=== PATIENT | female | born 1995 | race Caucasian/White ===

== ENCOUNTER 2019-08-12 10:18 | Day surgery (SDC) | payer MEDICAID, SELFPAY ==
[2019-08-12 10:48] VITALS: BP 125/63; TEMP 98.4; BMI 40.8
[2019-08-12] MEDS ORDERED: Ondansetron PF 4 MG/2 ML Vial IVP PRN (10:50)
[2019-08-12] MEDS ORDERED: hydrALAZINE 20 MG/ML VIAL SLOW IVP PRN (10:50)
[2019-08-12] MEDS ORDERED: Acetaminophen 500 MG TAB PO PRN (10:50)
[2019-08-12] MEDS ORDERED: Promethazine HCl 25 MG/ML VIAL IM PRN (10:50)
[2019-08-12] MEDS ORDERED: Docusate 100 MG CAP PO PRN (10:50)
[2019-08-12 11:32] LABS: #Eosinphils 0.2 thou/uL (0.0-0.7); #Lymphocytes 2.5 thou/uL (1.20-3.40); #Monocytes 0.8 thou/uL (0.11-0.59); #Neutrophils 8.2 thou/uL (1.40-6.50); %Basophils 0.1 % (0.0-1.0); %Eosinophils 1.6 % (0.0-10.0); %Lymphocytes 21.4 % (21.0-51.0); %Monocytes 6.6 % (0.0-10.0); %Neutrophils 70.3 % (42.0-75.0); Hemoglobin 10.2 g/dL (12.0-16.0); Mean Corpuscular HGB CONC 34.8 g/dL (32.0-36.0); Mean Corpuscular Hemoglobin 29.1 pg (27.0-31.0); Mean Corpuscular Volume 83.6 fL (78.0-98.0); Mean Platelet Volume 7.7 fL (7.4-10.4); Platelet Count 232 thou/uL (130-400); RBC Distribution Width 12.5 % (11.5-14.5); White Blood Cell (WBC) Count 11.7 thou/uL (4.8-10.8)
[2019-08-12 11:43] LABS: Amphetamine Not Detected (NotDetected); Cocaine Metabolite Screen Not Detected (NotDetected); Medtox Reader # READER 4; Methamphetamine Not Detected (NotDetected); Opiate Screen Not Detected (NotDetected); Phencyclidine (PCP) Not Detected (NotDetected); THC/Cannabinoid Screen Detected (NotDetected)
[2019-08-12 11:44] LABS: Barbiturates Screen Not Detected (NotDetected); Benzodiazepine Screen Not Detected (NotDetected); Medtox Control Line Valid? VALID (VALID); Methadone Not Detected (NotDetected); Oxycodone Screen Not Detected (NotDetected); Tricyclic Screen Not Detected (NotDetected)
[2019-08-12 11:51] LABS: Creatinine, Urine 154.47 mg/dL (47-110)
[2019-08-12 11:57] LABS: ALT (SGPT) 12 U/L (8-55); AST (SGOT) 12 U/L (5-34); Albumin 3.2 g/dL (3.5-5.0); Alkaline Phosphatase 119 U/L (40-150); Anion Gap 11 mmol/L (10-20); BUN (Urea Nitrogen) 5 mg/dL (7.0-18.7); Bilirubin, Total 0.2 mg/dL (0.2-1.2); Calc. Creatinine Clearance 248 mL/min (70-130); Calcium 8.5 mg/dL (7.8-10.44); Carbon Dioxide 17 mmol/L (22-29); Chloride 110 mmol/L (98-107); Estimated GFR-MDRD Greater than 90; Glucose 91 mg/dL (70-105); Potassium 3.3 mmol/L (3.5-5.1); Protein, Total 6.2 g/dL (6.0-8.3); Sodium 135 mmol/L (136-145)
--- NOTE | 2019-08-12 12:46 | PDOC.FPROB ---
FMR OB H&P: HPI - History of Present Illness Chief Complaint: Elevated Blood Pressure History of Present Illness: Patient is a 23 yo female who presents to L&D directly after a PNC visit earlier this morning. Patient states that her BP at clinic was 165/88, does not check pressures at home. She has a history of Pre-eclampsia with her first . She is late to care, with first PNC visit at 29.5 wks EGA. She did have an U/S at approx. 7.5 weeks performed at [facility] ( report not yet available). Patient currently denies any symptoms including chest pain, sob, headache, dizziness, vision or hearing changes, abdominal pain , nausea/vomiting, diarrhea, constipation, myalgia, arthralgia. Says she has felt her hands were a little bit more swollen in past week. FMR OB H&P: Current - Care : 2 Para: 1 Gestational age: 30.5 weeks Due date: 10/16/19 Dating Criteria: LMP on 01/09/19 c/w 7.5 week U/S Course/Complications: Glucose intolerance, Gest. 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 Admits to using marijuana "a few weeks ago" - Family History Family History: Grandparents: hypertension, diabetes FMR OB H&P: Medications - Current Home Medications: Medication Instructions Recorded Confirmed Type Vitamin 1 tablet PO DAILY 08/12/19 08/12/19 History Sertraline HCl 50 mg PO DAILY 08/12/19 08/12/19 History Allergies/Adverse Reactions: Allergies Allergy/AdvReac Type Severity Reaction Status Date / Time No Known Allergies Allergy Verified 08/12/19 14:24 FMR OB H&P: ROS - Review of Systems General: denies: fever/chills, weight/appetite/sleep changes, fatigue, recent trauma Eyes: denies: vision changes, double vision ENT: denies: nasal congestion, rhinorrhea Cardiovascular: denies: chest pain, palpitation Respiratory: denies: cough, congestion, shortness of breath Gastrointestinal: denies: abdominal pain, nausea, vomiting, diarrhea, constipation Genitourinary (Female): denies: vaginal discharge, vaginal bleeding Musculoskeletal: denies: pain, stiffness, tenderness, decrease range of motion Neurologic: denies: numbness, syncope, weakness, headache Integumentary: denies: itching, rash Psychological: reports: depression FMR OB H&P: Vital Signs - Maternal Vital signs: Vital Signs - First Documented Temp Pulse Resp BP Pulse Ox 98.4 F 101 H 18 125/63 96 08/12/19 10:43 08/12/19 10:43 08/12/19 10:43 08/12/19 10:43 08/12/19 10:43 - Heart Tones Baseline: 135 Variability: moderate Acceleration: present Deceleration: absent Category: category 1 [place] contractions every: none FMR OB H&P: Physical Exam - Physical Exam General: NAD, awake, alert and oriented HEENT: normocephalic and atraumatic, EOMI, MMM, conjunctiva clear, grossly normal vision, grossly normal hearing Neck: supple, FROM, no JVD Heart: RRR, normal S1/S2, no murmurs/rubs/gallops, pulses present, no edema General: CTAB, no respiratory distress, good air movement, no rales/rhonchi, no wheezing Abdomen: soft, non-tender, bowel sound present Musculoskeletal: pulses present Neurological: no focal deficit Skin: no rash, good tugor, no jaundice Lymphatic: no unusual bruising or bleeding Psychiatric: intact recent and remote memory, normal mood and affect FMR OB H&P: Results - Labs Lab results: Laboratory Results - last 24 hr 08/12/19 08/12/19 08/12/19 11:17 11:17 11:23 WBC RBC Hgb Hct MCV MCH MCHC RDW Plt Count MPV Neutrophils % Lymphocytes % Monocytes % Eosinophils % Basophils % Neutrophils # Lymphocytes # Monocytes # Eosinophils # Basophils # Sodium Potassium Chloride Carbon Dioxide Anion Gap BUN Creatinine Estimated GFR (MDRD) Glucose POC Glucose Hemoglobin A1c 5.0 Calcium Total Bilirubin AST ALT Alkaline Phosphatase Serum Total Protein Albumin Globulin Albumin/Globulin Ratio U Random Total Protein 17 H Urine Creatinine 154.47 H Urine Opiates Screen Not Detected Ur Oxycodone Screen Not Detected Urine Methadone Screen Not Detected Ur Propoxyphene Screen Not Detected Ur Barbiturates Screen Not Detected Ur Tricyclics Screen Not Detected Ur Phencyclidine Scrn Not Detected Ur Amphetamines Screen Not Detected U Methamphetamines Scrn Not Detected U Benzodiazepines Scrn Not Detected U Cocaine Metab Screen Not Detected U Cannabinoids Screen Detected H Drug Screen Comment 08/12/19 08/12/19 08/12/19 11:23 11:23 11:32 WBC 11.7 H RBC 3.50 L Hgb 10.2 L Hct 29.3 L MCV 83.6 MCH 29.1 MCHC 34.8 RDW 12.5 Plt Count 232 MPV 7.7 Neutrophils % 70.3 Lymphocytes % 21.4 Monocytes % 6.6 Eosinophils % 1.6 Basophils % 0.1 Neutrophils # 8.2 H Lymphocytes # 2.5 Monocytes # 0.8 H Eosinophils # 0.2 Basophils # 0.0 Sodium 135 L Potassium 3.3 L Chloride 110 H Carbon Dioxide 17 L Anion Gap 11 BUN 5 L Creatinine 0.54 L Estimated GFR (MDRD) Greater than 90 Glucose 91 POC Glucose 97 Hemoglobin A1c Calcium 8.5 Total Bilirubin 0.2 AST 12 ALT 12 Alkaline Phosphatase 119 Serum Total Protein 6.2 Albumin 3.2 L Globulin 3.0 Albumin/Globulin Ratio 1.1 L U Random Total Protein Urine Creatinine Urine Opiates Screen Ur Oxycodone Screen Urine Methadone Screen Ur Propoxyphene Screen Ur Barbiturates Screen Ur Tricyclics Screen Ur Phencyclidine Scrn Ur Amphetamines Screen U Methamphetamines Scrn U Benzodiazepines Scrn U Cocaine Metab Screen U Cannabinoids Screen Drug Screen Comment FMR OB H&P: A/P - Problem List (1) Third trimester Current Visit: Yes Status: Acute Code(s): Z34.93 - ENCNTR FOR SUPRVSN OF NORMAL PREG, UNSP, THIRD TRIMESTER (2) Gestational HTN Current Visit: Yes Status: Acute Code(s): O13.9 - GESTATIONAL HTN W/O SIGNIFICANT PROTEINURIA, UNSP TRIMESTER Qualifiers: Trimester: third trimester Qualified Code(s): O13.3 - Gestational [ -induced] hypertension without significant proteinuria, third trimester (3) Hx of pre-eclampsia in prior , currently Current Visit: Yes Status: Acute Code(s): O09.299 - SUPRVSN OF PREG W POOR REPRODCTV OR OBSTET HISTORY, UNSP TRI (4) Glucose intolerance Current Visit: Yes Status: Acute Code(s): E74.39 - OTHER DISORDERS OF INTESTINAL CARBOHYDRATE ABSORPTION Disposition: 23 yo female @ 30.5 weeks who presents to L&D triage with report of elevated blood pressures and failed 2h GTT at [facility] visit earlier in morning. #New Dx of Gestational HTN, r/o Pre-Eclampsia -will monitor BP, HR -will monitor FHR tracing and obtain NST -check CBC, CMP, Urine Protein, Urine Creatinine #Glucose Intolerance -failed 2hr GTT -check random BG now & order HgA1C -will provide dietary counseling #Blood type A, Rh negative -received one dose of Rhogam at clinic visit earlier today #, third trimester -late to pre- care, first visit 29.5 weeks -routine pre- labs taken at clinic visit today -has f/u appointment at [facility] on 08/19/19 Discussion: Date/Time: 08/12/19 0910 This H&P was discussed with Dr. Luis and Dr. Forbes who agree with the above documentation and plan.
--- NOTE | 2019-08-12 20:26 | PDOC.EVN ---
Event Note - Event Note Event Note: 23 yo female @ 30.5 weeks who presents to L&D triage with report of elevated blood pressures and failed 2h GTT at [facility] visit earlier in morning. Patient's blood pressures while being monitored over approx. 2 hour period were 120s systolic/ 70s diastolic. HR <100. Patient's FHR tracing was reactive and reassuring, FHR 130s with occasional accelerations. Patient's labs were grossly normal, including an HgA1C of 5.0% and Urine Protein/Cr ratio of 0.11. Patient was instructed to keep her f/u appointment at [facility] on 08/19/[address] Katerin Francis. She was also provided with dietary counseling. She was discharged back to home at approx. 1300 after about 2 hours of monitoring on L&D.
== END 2019-08-12 13:08 | disposition home health service (06) ==
LOC: L&D/OP 10:18
PROVIDERS: ATTEND Family Medicine
DX: O13.3 Gestational [pregnancy-induced] hypertension without significant proteinuria, third trimester (principal); O99.283 Endocrine, nutritional and metabolic diseases complicating pregnancy, third trimester; E74.39 Other disorders of intestinal carbohydrate absorption; O99.213 Obesity complicating pregnancy, third trimester; E66.9 Obesity, unspecified; O09.293 Supervision of pregnancy with other poor reproductive or obstetric history, third trimester; Z79.899 Other long term (current) drug therapy; Z3A.30 30 weeks gestation of pregnancy
CPT/HCPCS: 36415; 36416; 80053; 80306; 82570; 83036; 84156; 85025

== ENCOUNTER → 2019-08-29 | Day surgery (SDC) | payer MEDICAID, OTHER ==
[~2019-08-29] MED LIST: FLU VACC QS2019-20(6MOS UP)/PF 60 MCG/0.5 ML SYRINGE IM ONE; hydrALAZINE 20 MG/ML VIAL SLOW IVP PRN
[2019-08-29 07:11] VITALS: BMI 40.8
--- NOTE | 2019-08-29 08:44 | PDOC.FPROB ---
FMR OB H&P: HPI - History of Present Illness Chief Complaint: High BP Indentification: at 33.1 by LMP/7.1 wk sono History of Present Illness: 23 yo at 33.1 by LMP/7.1 wk sono here for elevated BP. She has had borderline BPs in [facility] and so has been advised to monitor at home. This AM she had a BP of 139/101 and came straight here. She was seen on 08/12 for a preE workup which was negative. Currently she denies SOLER, vision changes, CP, SOB, RUQ pain. Had a SOLER yesterday that resolved with tylenol. She denies CTX, fever, chills, VB, LOF. Endorses green VD for the past two days. Denies hx of STIs. Primary Care Physician: Dr. Manley FMR OB H&P: Current - Care : 2 Para: 1 Gestational age: 33.1 Due date: 10/16/19 Dating Criteria: - OB Labs Blood type: A RH: negative Antibody Screen: negative HIV: negative RPR: negative HepBsAg: negative Rubella: non-immune Gonorrhea: negative Chlamydia: negative Pap Smear: ASCUS A1c: 5.0 GBS: unknown H&H: 10.6/31.3 Platelets: 250 - Anatomy Survey Anatomy survey: [place] 40.5%. placenta anterior. size equal to dates, male fetus, no other abnormalities noted, limited exam due to gestational age FMR OB H&P: History - Past Medical History PMH: Depression, depression, GDM A1, obesity, late to care, GERD , ASCUS, anemia of , hx of cannabis, rubella nonimmune - OB History OB History: one at 40 weeks - ROAD MARKER History ROAD MARKER History: ASCUS, no hx of STD's - Surgical History Sx History: cholecystectomy - Social History Social History: denies TAD - Family History Family History: htn mother and maternal aunt FMR OB H&P: Medications - Current Home Medications: Medication Instructions Recorded Confirmed Type Vitamin 1 tablet PO DAILY 08/12/19 08/29/19 History Sertraline HCl 50 mg PO DAILY 08/12/19 08/29/19 History Allergies/Adverse Reactions: Allergies Allergy/AdvReac Type Severity Reaction Status Date / Time No Known Allergies Allergy Verified 08/29/19 07:06 FMR OB H&P: ROS - Review of Systems General: denies: fever/chills Eyes: denies: vision changes, scotomas Cardiovascular: reports: palpitation (hx of anxiety attacks). denies: chest pain, edema Respiratory: denies: shortness of breath Gastrointestinal: reports: diarrhea (4 days watery, 3x/day). denies: abdominal pain Genitourinary (Female): reports: vaginal discharge (green discharge 2 days). denies: contractions Musculoskeletal: denies: swelling Neurologic: denies: headache Psychological: reports: depression, anxiety FMR OB H&P: Vital Signs - Maternal Vital signs: BP systolic range 120s, max 133; diastolic range 80s, max 89 - Heart Tones Baseline: 150 Variability: moderate Acceleration: present Deceleration: absent Category: category 1 (none- reactive and reassuring) FMR OB H&P: Physical Exam - Physical Exam General: NAD Heart: RRR, normal S1/S2 General: CTAB, no respiratory distress Abdomen: soft, non-tender Musculoskeletal: normal gait and station, pulses present, FROM in all four extremities FMR OB H&P: Results - Labs Other labs: Pending FMR OB H&P: A/P - Problem List (1) Vaginal discharge Current Visit: Yes Status: Acute Code(s): N89.8 - OTHER SPECIFIED NONINFLAMMATORY DISORDERS OF VAGINA (2) Elevated blood pressure affecting in third trimester, antepartum Current Visit: Yes Status: Acute Code(s): O16.3 - UNSPECIFIED MATERNAL HYPERTENSION, THIRD TRIMESTER (3) Post depression Current Visit: No Status: Acute Code(s): F53 - MENTAL AND BEHAVRL DISORDERS ASSOC WITH THE P * DO NOT USE * (4) Third trimester Current Visit: No Status: Acute Code(s): Z34.93 - ENCNTR FOR SUPRVSN OF NORMAL PREG, UNSP, THIRD TRIMESTER Discussion: Date/Time: 08/29/19 0832 23 at 33.1 by LMP/7.1wk sono 1. sIUP 2. Elevated home BP, preE rule out -all normal BPs <140/<90, no indication for further preE lab workup -Continue home and PNC monitoring -Elevated BP at home likely 2/2 to anxiety attack -NST reactive & reassuring 3. Vaginal discharge -VP3, GCC pending-treat as indicated 4. Anxiety -continue zoloft -counseling Continue routine f/u on appt 09/[address] Manley This H&P was discussed with Dr. Gaytan who agree with the above documentation and plan.
--- NOTE | 2019-08-29 09:27 | PDOC.EVN ---
Event Note - Event Note Event Note: OBGYN ATTESTATION: Triage A Seen at [phone] Patient seen at bedside by me and FM OB Team telephonic nurse case manager. Patient is a 23 yo at 33 weeks 1 day with increased BP at home at 131/ 101...here BPs are normal. Past HX of anxiety, on Zoloft 25 mg QD. ROS also pos for greenisg Vag Dsch. NST reactive. No evidence PTL or severe PIH syndrome. We will order VP3, GCCHL swab, and likely DC to home once returned.
--- NOTE | 2019-08-29 10:48 | PDOC.EVN ---
Event Note - Event Note Event Note: Discussed results with patient- positive for BV. Will send in abx. Discussed labor precuations, BP monitoring. Continue anxiety medications. Answered all questions. Continue PNC OB visits, next one 09/09. Patient indicated understanding. FHT reactive & reassuring. BPs stable all <140/<90
[2019-08-31 14:47] LABS: Chlamydia by PCR Not Detected (NotDetected); GC by PCR Not Detected (NotDetected)
== END | disposition home or self-care (01) ==
LOC: L&D/OP 06:39
PROVIDERS: ATTEND Obstetrics & Gynecology
DX: O99.89 Other specified diseases and conditions complicating pregnancy, childbirth and the puerperium (principal); R03.0 Elevated blood-pressure reading, without diagnosis of hypertension; N89.8 Other specified noninflammatory disorders of vagina; O99.343 Other mental disorders complicating pregnancy, third trimester; F41.8 Other specified anxiety disorders; Z3A.33 33 weeks gestation of pregnancy; Z79.899 Other long term (current) drug therapy
CPT/HCPCS: 87480; 87491; 87510; 87591; 87660

== ENCOUNTER 2019-09-01 22:44 | Day surgery (SDC) | payer OTHER ==
[2019-09-01 23:11] VITALS: BMI 40.8
[2019-09-01] MEDS ORDERED: Lactated Ringer's 1,000 ML IV SCH (23:45)
[2019-09-01] MEDS ORDERED: hydrALAZINE 20 MG/ML VIAL SLOW IVP PRN (23:49)
--- NOTE | 2019-09-02 00:20 | PDOC.FPROB ---
FMR OB H&P: HPI - History of Present Illness Chief Complaint: contractions History of Present Illness: Patient is a 23yo female at 33.4 weeks EGA by 7.1 wk U/S & LMP who presents to L&D triage with complaint of abdominal pain and back pain. Patient states that last night she started to feel pain in her back that radiated around to her abdomen, occurring bilaterally. Pain described as shooting and sharp, occurs about every 20 minutes. She additionally complains of a "knot" in her upper central abdomen that has been present on/off for past 24 hours. She has tried taking hot baths and applying heat pad but these have provided no pain relief. In past 24 hours has felt less movement. States normally feels baby move every 30 minutes but now only feeling movement every 2-3 hours. Patient additionally states that she has new diarrhea that started about 1 week ago. She has been drinking about 1.5-2 liters of water daily in attempt to stay hydrated. Also states depression sx have been worsening with more frequent panic attacks. She states she has to sit still in quiet room for period of time and feeling self-resolve. Denies any suicidal or homicidal ideations. Denies nausea/vomiting, swelling, vision changes, headache, vaginal bleeding, loss of fluid. Has dx of GDM currently managed with diet. Past few weeks FBG has been in 80s, highest BS she has seen is 117. Is seen at [facility]. Recent hospital visit on Sunday08/29/19 for white/purulent vaginal discharge, was dx with BV and sent Rx for Flagyl but was unable to pick this up until earlier today. Has not taken a dose yet. Additionally last Sunday08/26/19 was seen in U/S clinic at [facility] for modified NST& BPP which was normal, at that time complained of itching of bilateral lower extremities and sent Rx but unable to pick this up until today. States itching has been getting better without intervention but still present. Primary Care Physician: PNC Madeline Manley FMR OB H&P: Current - Care : 2 Para: 1 Gestational age: 33.4 wks by 7.1 wk U/S & LMP Due date: 10/16/2019 Course/Complications: late to PN at 29.5 weeks gHTN, no severe range pressures gDM, currently diet managed Depression, last PHQ9 score 19 - OB Labs Blood type: A RH: negative Antibody Screen: negative HIV: negative RPR: negative HepBsAg: negative Rubella: immune Quad screen: unknown Urine drug screen: positive (on 08/12/19 positive for marijuana) Gonorrhea: negative Chlamydia: negative Pap Smear: ASCUS, HPV high risk negative 1 hour gtt: 185 3 hour GTT: 2hr GTT pos A1c: 5.0 GBS: unknown H&H: 10.6 - Anatomy Survey Anatomy survey: normal FMR OB H&P: History - Past Medical History PMH: Pre-eclampsia with 1st in 2014 hx of post- depression after 1st GERD Obesity - OB History OB History: in 2015, complicated by shoulder dystocia - FOOD SERVICE TECHNICIAN History FOOD SERVICE TECHNICIAN History: currently being treated for BV - Surgical History Sx History: Cholecystectomy 2016 - Social History Social History: Admits to occasional marijuana use. Denies EtOH and tobacco use. - Family History Family History: Grandparents: HTN, Diabetes FMR OB H&P: Medications - Current Home Medications: Medication Instructions Recorded Confirmed Type Vitamin 1 tablet PO DAILY 08/12/19 09/01/19 History Sertraline HCl 50 mg PO DAILY 08/12/19 09/01/19 History Nitrofurantoin Monohyd/M-Cryst 100 mg PO BID 5 Days #10 capsule 09/02/19 Rx [Macrobid 100 mg Capsule] metroNIDAZOLE [Flagyl] 500 mg PO BID #14 tab 09/02/19 Rx Allergies/Adverse Reactions: Allergies Allergy/AdvReac Type Severity Reaction Status Date / Time No Known Allergies Allergy Verified 08/29/19 07:06 FMR OB H&P: ROS - Review of Systems General: denies: fever/chills, fatigue Eyes: denies: vision changes, double vision ENT: denies: nasal congestion, rhinorrhea, sore throat Cardiovascular: denies: chest pain, edema Respiratory: denies: cough, congestion, shortness of breath Gastrointestinal: reports: abdominal pain, diarrhea. denies: nausea, vomiting, bright red blood Genitourinary (Female): reports: vaginal discharge, contractions. denies: dysuria, vaginal pain, vaginal bleeding Musculoskeletal: denies: pain, tenderness Neurologic: denies: numbness, weakness, headache Integumentary: reports: itching, lesions Psychological: reports: depression FMR OB H&P: Vital Signs - Maternal Vital signs: BP 127/86 HR 91 O2 sat 97% on RA - Heart Tones Baseline: 140 Deceleration: absent [place] contractions every: 2-4 min FMR OB H&P: Physical Exam - Physical Exam General: NAD, awake, alert and oriented HEENT: normocephalic and atraumatic, EOMI, MMM, conjunctiva clear, grossly normal vision, grossly normal hearing Neck: supple, FROM Heart: pulses present, no edema Deviation from normal: TTP in mid-abdomen. Firm fundus. Musculoskeletal: pulses present, FROM in all four extremities Neurological: sensation to pain,touch and proprioception grossly normal, no focal deficit Skin: good tugor, no jaundice Deviation from normal: multiple excoriations and scabs on lower legs bilaterally Lymphatic: no unusual bruising or bleeding Psychiatric: intact recent and remote memory, normal mood and affect - Pelvic Exam Vulva: normal hair distribution, no lesions, no blood Cervix: no lesions, no blood Deviation from normal: moderate amount of white purulent discharge FMR OB H&P: A/P - Problem List (1) contractions Status: Acute Code(s): O47.9 - FALSE LABOR, UNSPECIFIED (2) Bacterial vaginosis in Status: Acute Code(s): O23.599 - INFECTION OTH PRT GENITAL TRACT IN , UNSP TRIMESTER; B96.89 - OTH BACTERIAL AGENTS THE CAUSE OF DISEASES CLASSD [id number] Disposition: 23 year old at 33.4 wks presents with abdominal pain Contractions, -Currently jhoana every 2-4 minutes on monitor -FFN collected prior to vaginal exam, did not have to send as TVUS showed cervical length of 3.5 cm -Cervical check -Sterile speculum exam showed large amount of montoya discharge, no evidence of membrane rupture. Did not collect swabs as patient was seen on 08/29 and had swabs done at that time. Negative for GC/CT, but did have BV. Rx was sent to pharmacy but she has been unable to pick it up. Will give dose of flagyl here. -NST non-reactive initially, BPP 8/8 Mild dehydration 2/2 gastroenteritis - s/p 1L fluid bolus - CBC showed mild anemia with Hg 11.6 - CMP showed normal electrolytes, however, AST and ALT mildly elevated. Review of prior charts show that her AST/ALT previously normal. Elevation in liver enzymes may be 2/2 viral illness, however, given abdominal pain, RUQ ultrasound was obtained and patient was noted to have fatty liver and an unidentified liver mass. Radiologist to read the report tomorrow and this will need to be followed up on. Patient will also need repeat LFT's in 1 week. Transaminitis - Not in presence of elevated BP - Given abdominal pain, RUQ ultrasound was performed and showed fatty liver and unidentified liver mass. Radiologist to read report tomorrow. Will need to follow up on etiology of liver mass. - LFT's may be elevated 2/2 viral illness; however, will need to follow up in 1 week. Patient aware. - Given fatty liver, checked PT/PTT/INR. Those have not resulted yet - Hep A, Hep B, and Hep C panels pending on discharge Liver mass - Uncertain etiology - Noted on RUQ ultrasound - Awaiting final report from radiology - Will need outpatient follow up Uterine mass, likely fibroid - Noted on BPP, will need to be followed - Official radiology report pending at this time, will follow up on tomorrow Bacterial Vaginosis - White/purulent discharge seen on speculum exam - Patient given Rx for Flagyl on 08/29/19 but has not picked up from pharmacy - Will give 1 dose of Flagyl now and resend Rx Fatty liver disease - Noted on RUQ ultrasound - PT/PTT/INR pending - Elevated LFT's, will need to follow in 1 week UTI - With associated inflammation of right kidney - Patient tolerating PO, will give one dose of macrobid and sen Rx to pharmacy - Urine sent for culture Hx of Positive UDS - UDS on 08/12/19 positive for marijuana - UDS negative today A1GDM - Diet controlled, reports FBG in 80's and 2h PP BG <120 MDD - Currently on sertraline, continue medication - Per report, she is improved. Last PHQ-9 in clinic was 19 - Denies SI/HI Pruritis, NOS - Patient with itching x1 week, was prescribed hydroxyzine but never picked it up - Lower extremities with excoriations, may be 2/2 bug bites - Given recently identified elevation in LFT's and pruritis, sent for bile acids Dispo: Stable. labor ruled out. Patient with untreated BV, newly diagnosed UTI. Rx sent to pharmacy. Liver mass and fatty liver disease noted on RUQ ultrasound as indicated above. Discussed at length with patient. She will need outpatient follow up. Will notify PNC. Patient with elevated LFT's. Will need repeat in 1 week. Patient has appointment set up for 9:30 next Sunday. Barb Manley DO PGY-3 Discussion: Date/Time: 09/02/19 0009 This H&P was discussed with Dr. Manley and Dr. Gaytan who agree with the above documentation and plan. I, Barb Manley, added A/P and agree with documentation provided by Dr. Gomez. Signature: Barb Manley DO PGY-3
[2019-09-02 00:22] LABS: #Eosinphils 0.1 thou/uL (0.0-0.7); #Lymphocytes 2.2 thou/uL (1.20-3.40); #Monocytes 0.8 thou/uL (0.11-0.59); %Basophils 0.1 % (0.0-1.0); %Eosinophils 1.3 % (0.0-10.0); %Lymphocytes 21.8 % (21.0-51.0); %Monocytes 8.1 % (0.0-10.0); %Neutrophils 68.8 % (42.0-75.0); Hemoglobin 11.6 g/dL (12.0-16.0); Mean Corpuscular HGB CONC 34.6 g/dL (32.0-36.0); Mean Corpuscular Hemoglobin 29.2 pg (27.0-31.0); Mean Corpuscular Volume 84.4 fL (78.0-98.0); Mean Platelet Volume 8.1 fL (7.4-10.4); Platelet Count 277 thou/uL (130-400); RBC Distribution Width 13.2 % (11.5-14.5); Red Blood Cell (RBC) Count 3.96 mill/uL (4.20-5.40); White Blood Cell (WBC) Count 10.2 thou/uL (4.8-10.8)
[2019-09-02] MEDS ORDERED: metroNIDAZOLE 500 MG TAB PO SCH (00:30)
[2019-09-02 00:36] LABS: Bilirubin Negative (Negative); Blood, Urine Negative (Negative); Clarity Turbid (Clear); Glucose, Urine (Dipstick) Normal (Negative); Leukocyte 500 Leu/uL (Negative); Mucous/LPF Rare LPF (<2+); Nitrite Negative (Negative); Protein, Urine (Dipstick) 10 mg/dL (Neg-Trace); RBC/HPF 0-3 HPF (0-3); Urobilinogen Normal mg/dL (Less than 2); WBC/HPF 21-50 HPF (0-3)
[2019-09-02 00:38] LABS: Bacteria/HPF 1+ HPF (None Seen)
[2019-09-02 00:42] LABS: Amphetamine Not Detected (NotDetected); Barbiturates Screen Not Detected (NotDetected); Benzodiazepine Screen Not Detected (NotDetected); Cocaine Metabolite Screen Not Detected (NotDetected); Medtox Control Line Valid? VALID (VALID); Medtox Reader # READER 1; Methadone Not Detected (NotDetected); Methamphetamine Not Detected (NotDetected); Opiate Screen Not Detected (NotDetected); Oxycodone Screen Not Detected (NotDetected); Phencyclidine (PCP) Not Detected (NotDetected); THC/Cannabinoid Screen Not Detected (NotDetected); Tricyclic Screen Not Detected (NotDetected)
[2019-09-02 00:44] LABS: ALT (SGPT) 70 U/L (8-55); AST (SGOT) 44 U/L (5-34); Albumin 3.4 g/dL (3.5-5.0); Alkaline Phosphatase 149 U/L (40-110); Anion Gap 14 mmol/L (10-20); BUN (Urea Nitrogen) 4 mg/dL (7.0-18.7); Bilirubin, Total 0.2 mg/dL (0.2-1.2); Calc. Creatinine Clearance 250 mL/min (70-130); Calcium 8.8 mg/dL (7.8-10.44); Carbon Dioxide 17 mmol/L (22-29); Chloride 108 mmol/L (98-107); Estimated GFR-MDRD Greater than 90; Globulin 3.4 g/dL (2.4-3.5); Glucose 90 mg/dL (70-105); Potassium 3.8 mmol/L (3.5-5.1); Protein, Total 6.8 g/dL (6.0-8.3); Sodium 135 mmol/L (136-145)
[2019-09-02] MEDS ORDERED: Nitrofurantoin Monohyd/M-Cryst 100 MG CAP PO SCH ×3 (01:00→09:00)
--- NOTE | 2019-09-02 01:18 | PDOC.EVN ---
Event Note - Event Note Event Note: OBGYN Attending patient seen by me and HX reviewed. 23 yo at 33 weeks with LAP, NOS with diarrhea. Patient of the PNC. Dr Manley, first helper. CMP with slight LFT elevation...RUQ sono pending. We will check hep serologies. Send bile acids for baseline. TVL CX is 3.5cm BPP for decreased FM was07/03 Will likely follow as outpatient after RUQ sono obtained. No evidence PTL at this time. Vitals wnl
--- NOTE | 2019-09-02 02:44 | PDOC.EVN ---
Event Note - Event Note Event Note: Sono RUQ with unclear "mass" and possible early fatty changes, NOS Will need repeat LFTS and resono in one week. Will need GI eval. Close monitoring for fatty liver of as a possibility
[2019-09-02 03:26] LABS: Prothrombin Time 13.6 SEC (12.0-14.7)
[2019-09-02 03:56] LABS: HBSAB Concentration 1.34 mIU/mL; HBSAg Index 0.14 S/CO (0-0.99); Hep B Core Total Ab Non-Reactive (NonReactive); Hep B Core Total Index 0.03 S/CO (0-0.79); Hep B Surf AB Non-Reactive (NonReactive); Hep B Surf Ag Non-Reactive S/CO (NonReactive); Hep C IgG Ab Non-Reactive (NonReactive); Hep C Index 0.09 S/CO (0-0.79)
--- NOTE | 2019-09-02 08:30 | ULT ---
PRELIMINARY REPORT/[facility]/EMERGENCY AFTER HOURS PROCEDURE: PROCEDURE INFORMATION: Exam: US Abdomen Limited, Right Upper Quadrant Exam date and time: 09/02/2019 1:44 AM Clinical history: 23 years old, female; Pain and abnormal findings; Abnormal lab test; Elevated liver enzymes; Other: Diarrhea; ; Prior surgery; Surgery date: 6+ months; Surgery type: Cholecyste ctomy; Patient HX: Pelvic pain, elevated lft's; Additional info: 33 wks TECHNIQUE: Imaging protocol: Real-time ultrasound of the abdomen with image documentation. Examination was focus ed on the right upper quadrant. COMPARISON: No relevant prior studies available. FINDINGS: Liver: There is a 1.3 cm hyperechoic lesion within the right hepatic lobe, nonspecific but can be see n with benign hemangioma. Liver is mildly enlarged. Liver appears echogenic compatible with fatty estela er. Gallbladder: Patient is post cholecystectomy. A negative sonographic [place] sign is reported. Common bile duct: CBD measures 4 mm in diameter. Pancreas: Pancreas is partially obscured by bowel gas. Right kidney: Right kidney measures 14.2 x 5.3 x 6.5 cm with mild renal pelvic fullness. IMPRESSION: 1. Mild right hydronephrosis possibly normal in a patient. 2. Nonspecific hyperechoic liver lesion probably a benign hemangioma in the absence of known risk fac tors. Correlate clinically. Thank you for allowing us to participate in the care of your patient. Dictated and Authenticated by: Koby Herrera MD 09/02/2019 2:25 AM Central Time ([place] & Jan) FINAL REPORT RIGHT UPPER QUADRANT ULTRASOUND: Date: 09/02/19 COMPARISON: 11/27/15. HISTORY: Pain. Elevated LFTs. Patient is 33 weeks . FINDINGS: This report is in agreement with the preliminary report by [facility]. 1. Mild right-sided hydronephrosis likely due to status. Better interrogation with a renal ultrasound, including ultrasound of the pelvis, to assess for bilateral ureteral jets is recommended . 2. Gallbladder surgically absent. 3. Hyperechoic focus in right hepatic lobe measures 1.3 cm and may represent a benign hemangioma. Co rrelate clinically. 4. Slightly heterogeneous echotexture of the liver may represent hepatic steatosis. The results of the right upper quadrant ultrasound, the pelvic ultrasound and the non-stress bi ophysical profile were discussed with Dr. Gaytan on 09/12/2019 at 8:15 a.m. CODE CR POS: [facility]
--- NOTE | 2019-09-02 08:32 | ULT ---
NON-STRESS BIOPHYSICAL PROFILE: HISTORY: Pre-term contractions. Decreased movements. TECHNIQUE: Sagittal and transverse imaging of a gravid uterus was performed along with a non-stress biophy sical profile. FINDINGS: Vertex presentation. Suboptimal evaluation of the cervix due to shadowing. A 3.9 x 2.5 x 3.0 cm well circumscribed, hypoechoic focus in the intrauterine myometrium of uncertain significance. Anterior placenta is noted. The presence or absence of previa cannot be assessed on th e exam. heart tones at a rate of 133 beats per minute. Amniotic fluid index is 16.6 cm. NON-STRESS BIOPHYSICAL PROFILE: tone 2. breathing 2. movements 2. Amniotic fluid 2. Total score 8/8. IMPRESSION: 1. Non-stress biophysical profile with a total score of 8/8. 2. Hypoechoic focus in the intrauterine myometrium of uncertain significance. The results of the right upper quadrant ultrasound, the pelvic ultrasound and the non-stress bi ophysical profile were discussed with Dr. Gaytan on 09/12/2019 at 8:15 a.m. JOJO MARTE POS: [facility]
--- NOTE | 2019-09-02 08:34 | ULT ---
LIMITED PELVIC ULTRASOUND: HISTORY: Evaluate cervical length. COMPARISON: None. TECHNIQUE: Only endovaginal images of the lower uterine segment are submitted for interpretation. FINDINGS: There appears to be a cervix with a small amount of fluid measuring 3.5 cm. IMPRESSION: Cervical length of 3.5 cm. There appears to be a small amount of fluid present. The results of the right upper quadrant ultrasound, the pelvic ultrasound and the non-stress bi ophysical profile were discussed with Dr. Gaytan on 09/12/2019 at 8:15 a.m. CODE T CODE ROSANNA POS: [facility]
[2019-09-02] MEDS ORDERED: FLU VACC QS2019-20(6MOS UP)/PF 60 MCG/0.5 ML SYRINGE IM ONE (21:00)
== END 2019-09-02 03:06 | disposition home or self-care (01) ==
LOC: L&D/OP 22:44
PROVIDERS: ATTEND Obstetrics & Gynecology
DX: O47.03 False labor before 37 completed weeks of gestation, third trimester (principal); Z3A.33 33 weeks gestation of pregnancy; O24.410 Gestational diabetes mellitus in pregnancy, diet controlled; O13.3 Gestational [pregnancy-induced] hypertension without significant proteinuria, third trimester; O23.593 Infection of other part of genital tract in pregnancy, third trimester; N76.0 Acute vaginitis; O99.283 Endocrine, nutritional and metabolic diseases complicating pregnancy, third trimester; E86.0 Dehydration; O99.613 Diseases of the digestive system complicating pregnancy, third trimester; K52.9 Noninfective gastroenteritis and colitis, unspecified; K76.0 Fatty (change of) liver, not elsewhere classified; O99.343 Other mental disorders complicating pregnancy, third trimester; F32.9 Major depressive disorder, single episode, unspecified; O23.43 Unspecified infection of urinary tract in pregnancy, third trimester; N85.8 Other specified noninflammatory disorders of uterus
CPT/HCPCS: 36415; 76705; 76819; 76856; 80053; 80306; 81001; 82239; 85025; 85610; 85730; 86704; 86706; 86708; 86803; 87086; 87340

== ENCOUNTER 2019-10-09 18:00 | Inpatient (IN) | payer OTHER ==
[2019-10-10] MEDS ORDERED: Lidocaine 1% (PF) 30 ML VIAL SC PRN (06:19)
[2019-10-10] MEDS ORDERED: Ibuprofen 800 MG TAB PO PRN (06:19)
[2019-10-10] MEDS ORDERED: Acetaminophen 500 MG TAB PO PRN (06:19)
[2019-10-10] MEDS ORDERED: Misoprostol 200 MCG TAB PR PRN (06:19)
[2019-10-10] MEDS ORDERED: Ondansetron PF 4 MG/2 ML Vial IVP PRN ×2 (06:19→11:43)
[2019-10-10] MEDS ORDERED: Promethazine HCl 25 MG/ML VIAL IM PRN ×2 (06:19→11:43)
[2019-10-10] MEDS ORDERED: Butorphanol Tartrate 1 MG/ML VIAL SLOW IVP PRN (06:19)
[2019-10-10] MEDS ORDERED: Carboprost 250 MCG/ML AMP IM PRN (06:19)
[2019-10-10] MEDS ORDERED: Diphenoxylate HCl/Atropine Tablet PO PRN ×2 (06:19)
[2019-10-10] MEDS ORDERED: Methylergonovine 0.2 MG/ML VIAL IM PRN (06:19)
[2019-10-10] MEDS ORDERED: hydrALAZINE 20 MG/ML VIAL SLOW IVP PRN ×2 (06:19→19:22)
[2019-10-10 06:24] VITALS: BMI 41.0
[2019-10-10] MEDS ORDERED: NS w/ Oxytocin 10 units 500 ML IV SCH ×2 (06:30)
--- NOTE | 2019-10-10 06:30 | PDOC.FPROB ---
FMR OB H&P: HPI - History of Present Illness Chief Complaint: IOL 2/2 gestational diabetes Indentification: 23 yo @ 39.1 weeks Primary Care Physician: Dirk FMR OB H&P: Current - Care : 2 Para: 1 Gestational age: 39.1 Due date: 10/16/19 - OB Labs Blood type: A RH: negative Antibody Screen: negative HIV: negative RPR: negative HepBsAg: negative Rubella: non-immune Quad screen: unknown Gonorrhea: unknown Chlamydia: unknown Pap Smear: Pap smear was done in July, Records are pending 3 hour GTT: Fasting 87, 1/2 hour 142, 1 hr 185, 2 hr 136 GBS: negative H&H: 10.6 Additional labs: TSH 3.308 - Additional Ultrasound Additional: 30.3 week sono [place]lock 40.5% FMR OB H&P: History - Past Medical History PMH: PMH: Pre-eclampsia with first in 2014 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 Pt denies any recent illicit drug use. Reports marijuana use earlier in - Family History Family History: Grandparents: hypertension, diabetes FMR OB H&P: Medications - Current Home Medications: Medication Instructions Recorded Confirmed Type Vitamin 1 tablet PO DAILY 08/12/19 10/10/19 History Sertraline HCl 50 mg PO DAILY 08/12/19 10/10/19 History Allergies/Adverse Reactions: Allergies Allergy/AdvReac Type Severity Reaction Status Date / Time No Known Allergies Allergy Verified 10/10/19 06:26 FMR OB H&P: ROS - Review of Systems General: denies: fever/chills, weight/appetite/sleep changes, night sweats, fatigue Eyes: denies: eye pain, vision changes, double vision ENT: denies: nasal congestion, rhinorrhea Cardiovascular: denies: chest pain, palpitation, edema, paroxysmal nocturnal dyspnea, orthopnea Respiratory: denies: cough, congestion, shortness of breath Gastrointestinal: denies: abdominal pain, indigestion, bloating, cramping, nausea, diarrhea, constipation Genitourinary (Female): denies: incontinence, dysuria, hematuria, polyuria, hesitancy, vaginal discharge, vaginal pain, vaginal bleeding, contractions, vaginal pressure Musculoskeletal: denies: pain, stiffness, tenderness, redness, decrease range of motion Neurologic: denies: numbness, syncope, weakness, headache Integumentary: denies: itching, rash Breast: denies: lumps, bumps Endocrine: denies: cold intolerance, heat intolerance Hematologic/Lymphatic: denies: prolonged or excessive bleeding Psychological: reports: depression. denies: anxiety FMR OB H&P: Vital Signs - Maternal Vital signs: Vital Signs - First Documented Temp Pulse Resp BP Pulse Ox 98.4 F 104 H 14 131/77 100 10/10/19 06:05 10/10/19 06:05 10/10/19 06:05 10/10/19 06:05 10/10/19 06:05 - Heart Tones Baseline: 145 Variability: moderate Acceleration: present Deceleration: absent Category: category 1 [place] contractions every: Intermittent FMR OB H&P: Physical Exam - Physical Exam General: NAD, awake, alert and oriented HEENT: normocephalic and atraumatic, grossly normal vision, grossly normal hearing, good dention Neck: supple, trachea midline, no LAD Chest: non-tender to palpation Breast: symmetric, non-tender, no palpable masses, no skin changes, no erythema Heart: RRR, normal S1/S2, no murmurs/rubs/gallops, pulses present, no edema General: no respiratory distress, good air movement, no rales/rhonchi, no wheezing, no retractions Abdomen: soft, gravid, fundus(cm), non-tender, bowel sound present, no masses Musculoskeletal: normal gait and station, pulses present Neurological: sensation to pain,touch and proprioception grossly normal, DTR +2 Skin: no rash, good tugor, capillary refill <2 seconds Lymphatic: no unusual bruising or bleeding, no purpura Psychiatric: intact recent and remote memory, good judgement and insight, normal mood and affect - Pelvic Exam SVE: 7:00 4/60/-2 Presentation: Vertex FMR OB H&P: A/P - Problem List (1) Gestational diabetes Current Visit: Yes Status: Acute Code(s): O24.419 - GESTATIONAL DIABETES MELLITUS IN , UNSP CONTROL (2) Rubella non-immune status, antepartum Current Visit: Yes Status: Acute Code(s): O99.89 - OTH DISEASES AND CONDITIONS COMPL PREG/CHLDBRTH; Z28.3 - UNDERIMMUNIZATION STATUS (3) Late care Current Visit: Yes Status: Acute Code(s): O09.30 - SUPRVSN OF PREG W INSUFFICIENT ANTENAT CARE, UNSP TRIMESTER (4) Gestational HTN Current Visit: No Status: Acute Code(s): O13.9 - GESTATIONAL HTN W/O SIGNIFICANT PROTEINURIA, UNSP TRIMESTER Qualifiers: Trimester: third trimester Qualified Code(s): O13.3 - Gestational [ -induced] hypertension without significant proteinuria, third trimester (5) Third trimester Current Visit: No Status: Acute Code(s): Z34.93 - ENCNTR FOR SUPRVSN OF NORMAL PREG, UNSP, THIRD TRIMESTER Disposition: 23 yo @ 39.1 weeks here for IOL 2/2 Gestational Diabetes, GDMA1 IOL -SVE @ 7:00 /-2. Will start pitocin induction. -Anesthesia consulted for epidural GMDA1 -Accuchecks q4h hrs -Pt sugars well controlled. Will place on ssi as needed gestational HTN -Will monitor BP. hx or pre-e in past . Rubella non-immune -immunize pp Hx of Marijuana use in -denies any recent ilicit drug use -Will check UDS At this time we did not have all pt PNC records. We will get records once clinic is open and update problems as needed. Do not have all ultrasounds and recent lab testing. Discussion: Date/Time: 10/10/19625 This H&P was discussed with [] and [] who agree with the above documentation and plan.
[2019-10-10 07:00] LABS: Hemoglobin 10.7 g/dL (12.0-16.0); Mean Corpuscular HGB CONC 35.3 g/dL (32.0-36.0); Mean Corpuscular Hemoglobin 29.8 pg (27.0-31.0); Mean Corpuscular Volume 84.5 fL (78.0-98.0); Mean Platelet Volume 8.7 fL (7.4-10.4); Platelet Count 211 thou/uL (130-400); RBC Distribution Width 13.3 % (11.5-14.5); Red Blood Cell (RBC) Count 3.57 mill/uL (4.20-5.40); White Blood Cell (WBC) Count 7.5 thou/uL (4.8-10.8)
[2019-10-10] MEDS: Lactated Ringer's 1,000 ML IV SCH ×3 (07:24→11:48)
[2019-10-10 07:34] LABS: Glucose 127 mg/dL (70-105)
[2019-10-10 07:42] LABS: HBSAg Index 0.14 S/CO (0-0.99); Hep B Surf Ag Non-Reactive S/CO (NonReactive)
[2019-10-10 10:13] LABS: Amphetamine Not Detected (NotDetected); Barbiturates Screen Not Detected (NotDetected); Benzodiazepine Screen Not Detected (NotDetected); Cocaine Metabolite Screen Not Detected (NotDetected); Medtox Reader # READER 4; Methadone Not Detected (NotDetected); Methamphetamine Not Detected (NotDetected); Opiate Screen Not Detected (NotDetected); Oxycodone Screen Not Detected (NotDetected); Phencyclidine (PCP) Not Detected (NotDetected); THC/Cannabinoid Screen Not Detected (NotDetected); Tricyclic Screen Not Detected (NotDetected)
[2019-10-10 10:14] LABS: Medtox Control Line Valid? VALID (VALID)
[2019-10-10 10:46] LABS: Syphilis Antibody Nonreactive (Nonreactive); Syphilis Antibody Index 0.04 S/CO (<1.00 Non-Reactive)
[2019-10-10] MEDS ORDERED: Fentanyl 4 mcg/Bup 0.1% Cadd 100 ML ONE (10:56)
--- NOTE | 2019-10-10 11:08 | PDOC.LDPN ---
Labor & Delivery Progress Note - Subjective Subjective: comfortable - Objective Vital signs reviewed and normal: yes General: NAD Uterine fundus: non tender Dilation: 5 Effacement: 75% Station: -2 FHT: category 1 [place] contractions every: 3 minutes - Assessment (1) Gestational diabetes Code(s): O24.419 - GESTATIONAL DIABETES MELLITUS IN , UNSP CONTROL Current Visit: Yes Status: Acute (2) Rubella non-immune status, antepartum Code(s): O99.89 - OTH DISEASES AND CONDITIONS COMPL PREG/CHLDBRTH; Z28.3 - UNDERIMMUNIZATION STATUS Current Visit: Yes Status: Acute (3) Gestational HTN Code(s): O13.9 - GESTATIONAL HTN W/O SIGNIFICANT PROTEINURIA, UNSP TRIMESTER Current Visit: No Status: Acute Qualifiers: Trimester: third trimester Qualified Code(s): O13.3 - Gestational [ -induced] hypertension without significant proteinuria, third trimester (4) Third trimester Code(s): Z34.93 - ENCNTR FOR SUPRVSN OF NORMAL PREG, UNSP, THIRD TRIMESTER Current Visit: No Status: Acute Plan: pitocin for augmentation -: 23 yo @ 39.1 weeks here for IOL 2/2 Gestational Diabetes, GDMA1 IOL -SVE @ 9:30 /-2. Currently on pit. -Anesthesia consulted for epidural GMDA1 -Accuchecks q4h hrs -Pt sugars well controlled. Will place on ssi as needed gestational HTN -Will monitor BP. hx or pre-e in past . Rubella non-immune -immunize pp Hx of Marijuana use in -denies any recent ilicit drug use -Will check UDS C
[2019-10-10] MEDS ORDERED: Naloxone HCl 0.4 mg/ml Vial IVP PRN ×2 (11:43)
[2019-10-10] MEDS ORDERED: ePHEDrine/0.9% NaCl/PF SYRINGE 50 mg/10 ml SLOW IVP PRN (11:43)
[2019-10-10] MEDS ORDERED: diphenhydrAMINE 50 MG/ML VIAL IVP PRN (11:43)
[2019-10-10] MEDS ORDERED: Lactated Ringer's 500 ML IV PRN (11:43)
[2019-10-10] MEDS ORDERED: Acetaminophen 325 MG TAB PO PRN (11:43)
[2019-10-10] MEDS ORDERED: Communication Order-Pharmacy FS PRN (11:45)
[2019-10-10] MEDS ORDERED: Fentanyl 4 mcg/Bupivacaine 0.1% Cassette 100 ML EPIDURAL SCH (11:45)
--- NOTE | 2019-10-10 15:20 | PDOC.LDPN ---
Labor & Delivery Progress Note - Subjective Subjective: comfortable - Objective Abnormal vital signs: Borderline SBP of 140 General: NAD, resting Uterine fundus: non tender SVE: 14:45 Dilation: 6 Effacement: 90% Station: -1 FHT: category 1, early decelerations, variability present [place] contractions every: q2-3 min AROM: bloody fluid IUPC placed: yes FSE placed: yes - Assessment (1) Gestational diabetes Code(s): O24.419 - GESTATIONAL DIABETES MELLITUS IN , UNSP CONTROL Current Visit: Yes Status: Acute (2) Late care Code(s): O09.30 - SUPRVSN OF PREG W INSUFFICIENT ANTENAT CARE, UNSP TRIMESTER Current Visit: Yes Status: Acute (3) Third trimester Code(s): Z34.93 - ENCNTR FOR SUPRVSN OF NORMAL PREG, UNSP, THIRD TRIMESTER Current Visit: No Status: Acute Plan: continue plan of care, labor augmentation, pitocin for augmentation -: 23 year old at 39.1 wks. Patient on pitocin since approximately 7:30 AM. She has made gradual change. AROM with bloody/clear fluid. Large amount of fluid noted on rupture. Head descended and engaged in pelvis. FSE placed as nurse was having difficult keeping baby on monitor. IUPC placed for pitocin titration. Continue current management.
[2019-10-10] MEDS: NS / Oxytocin 40 units/1000ml 1,000 ML IV PRN ×2 (16:33→18:22)
[2019-10-10 16:55] LABS: Actual Bicarbonate (HCO3a) 20.7 mEq/L (22-28); Base Excess (BEa) -7.2 mEq/L (-2.0 to +3.0)
[2019-10-10 16:56] LABS: Analyzer IN Cardio OR
[2019-10-10 17:36] LABS: Actual Bicarbonate (HCO3v) 20 mEq/L (22-28); Analyzer IN Cardio OR; Base Excess -5.9 mEq/L (-2.0 to +3.0); pH (Cord, venous) 7.32 (7.32-7.43)
[2019-10-10] MEDS ORDERED: Measles/Mumps/Rubella 10 MCG/0.5 ML VIAL SC ONE (19:22)
[2019-10-10] MEDS ORDERED: NS / Oxytocin 40 units/1000ml 1,000 ML IV SCH (19:22)
[2019-10-10] MEDS ORDERED: Benzocaine-Menthol 82.5 ML CAN TOP PRN (19:22)
[2019-10-10] MEDS ORDERED: Adacel (T-DAP) 0.5 ML SYRINGE IM ONE (19:22)
[2019-10-10] MEDS ORDERED: Milk Of Magnesia 30 ML UDCUP PO PRN (19:22)
[2019-10-10] MEDS ORDERED: Preparation H Ointment 28 GM TUBE PR PRN (19:22)
[2019-10-10] MEDS ORDERED: Lanolin Ointment 7 GM TUBE TOP PRN (19:22)
[2019-10-10] MEDS ORDERED: Bisacodyl 10 MG SUPP PR PRN (19:22)
[2019-10-10] MEDS ORDERED: diphenhydrAMINE 25 MG CAP PO PRN (19:22)
[2019-10-10] MEDS: Ibuprofen 800 MG TAB PO SCH (21:25)
[2019-10-10] MEDS: Docusate Calcium (SURFAK) 240 MG CAP PO SCH (21:25)
[2019-10-11] MEDS: Ferrous Sulfate 325 MG TAB PO SCH ×3 (02:35→17:38)
[2019-10-11] MEDS: Ibuprofen 800 MG TAB PO SCH ×2 (05:17→14:53)
--- NOTE | 2019-10-11 08:36 | PDOC.PP ---
Post Progress Note Post Day #: 1 Subjective: Patient doing well. Tolerating PO, ambulating, passing flatus. Lochia minimal. Desires to go home today. PO intake tolerated: yes Flatus: yes Ambulation: yes Vital Signs (12 hours) Temp Pulse Resp BP Pulse Ox 10/11/19 05:15 98.3 F 89 16 120/72 10/11/19 00:00 98.5 F 92 16 131/77 10/10/19 21:00 98.7 F 96 20 117/63 97 Weight Weight 95.254 kg - Physical Examination General: NAD Cardiovascular: no m/r/g, RRR Respiratory: clear to auscultation bilaterally, non-labored breathing Abdominal: + bowel sounds, lochia (minimal), no distention, appropriately TTP Fundus firm & at: at umbilicus Skin: no rash Neurological: no gross focal deficits Psychiatric: A&Ox3, normal affect Result Diagrams: 10/10/19 06:51 10/10/19 06:51 Additional Labs: Post Labs Blood Type A NEGATIVE 10/10/19 06:51 Hep Bs Antigen Non-Reactive S/CO (NonReactive) 10/10/19 06:51 (1) Gestational diabetes Code(s): O24.419 - GESTATIONAL DIABETES MELLITUS IN , UNSP CONTROL Status: Acute (2) Late care Code(s): O09.30 - SUPRVSN OF PREG W INSUFFICIENT ANTENAT CARE, UNSP TRIMESTER Status: Acute (3) Term delivered Code(s): O80 - ENCOUNTER FOR FULL-TERM UNCOMPLICATED DELIVERY Status: Acute (4) Vaginal delivery Code(s): O80 - ENCOUNTER FOR FULL-TERM UNCOMPLICATED DELIVERY Status: Acute - Assessment/Plan 23 year old G2 now P2002 at 39.1 wks delivered TAGA M infant at 16:29 on 10/10. TIUP, delivered - Routine PP care - , no lacerations - Meeting PP milestones - Rh neg, Rh neg (no rhogam administered) - Rubella non-immune; needs MMR Rubella non-immune - MMR vaccine PP Anemia of - Lochia minimal - EBL 200 mL at delivery Hepatic steatosis - Will need liver enzymes repeated in PP period - Will need RUQ ultrasound repeated in PP period Liver hemangioma - Avoid estrogen containing BC Dispo: D/C home today. Addendum - Attending - Attending Attestation Date/Time: 10/11/19 1050 I personally evaluated the patient and discussed the management with Dr. Manley I agree with the History, Examination, Assessment and Plan documented above with any addition or exceptions noted below - Patient without complaints. Afebrile VSS. A/P: 1) PPD#1 s/p - doping well. Desires to go home of ready. Will recheck this afternoon and possible discharge..
[2019-10-11] MEDS ORDERED: Prenatal Vitamin 1 TAB PO SCH (09:00)
[2019-10-11] MEDS: Docusate Calcium (SURFAK) 240 MG CAP PO SCH (09:41)
[2019-10-11] MEDS ORDERED: Bupivacaine 0.25% HCL 30 ML VIAL ONE (11:11)
[2019-10-11] MEDS ORDERED: Bupivacaine HCl 0.25%/Epi 0.0005/PF 10 ML VIAL FS ONE (11:11)
[2019-10-11 12:16] VITALS: BP 124/77; TEMP 98.1
--- NOTE | 2019-10-12 21:56 | OP ---
DATE OF PROCEDURE: 10/10/2019 DELIVERING PHYSICIAN: Barb Manley DO PROCEDURE PERFORMED: Spontaneous vaginal delivery. ANESTHESIA: Epidural. ESTIMATED BLOOD LOSS: 200 mL. PREOPERATIVE DIAGNOSES: 1. Term intrauterine . 2. A1 gestational diabetes mellitus. 3. Major depressive disorder with history of depression. 4. Rubella nonimmune. 5. Rh negative. 6. History of marijuana use in . POSTOPERATIVE DIAGNOSES: 1. Term intrauterine , delivered. 2. A1 gestational diabetes mellitus. 3. Major depressive disorder with history of depression. 4. Rubella nonimmune. 5. Rh negative. 6. History of marijuana use in . INDICATIONS: This is a 23-year-old, G2, P1-0-0-1 who presented to Labor and Delivery for medically indicated induction of labor for A1 GDM at 39 and 1 weeks. DESCRIPTION OF PROCEDURE: This is a 23-year-old female, G2, P1-0-0-1 at 39 and 1 weeks, who delivered a viable male infant at 1629 hours on 10/10/2019. The patient had a relatively unremarkable intrapartum course. However, toward the end of her intrapartum course, heart tones dropped and prolonged bradycardia was noted. The patient was noted to be complete at this time, and decision was made to proceed with imminent vaginal delivery. The vaginal delivery was accomplished and a vigorous male was delivered over intact perineum in the occipitoanterior position. Anterior shoulder and the remainder of the body were delivered. No nuchal cord, however, there was a cord around the 's left foot that was reduced. The head was held down. The mouth and nares were bulb suctioned. Cord was clamped and cut and cord blood collected. Placenta was delivered intact with three-vessel cord noted. Fundal massage was performed and the fundus was firm. Cervix and vagina were inspected and found to be free of lacerations. went to nursery in good condition for routine care. Apgars were 8 and 9 at one and five minutes respectively. The patient tolerated the delivery well, went to after routine recovery/care. Given prolonged bradycardia, blood gas was obtained and noted to be 7.231 with a base excess of 7.2. Job ID: [id number]
== END 2019-10-11 18:17 | disposition home or self-care (01) | DRG 806 ==
LOC: L&D 10-10 05:33 → 3SW 10-10 19:19
PROVIDERS: ADMIT Family Medicine; ATTEND Family Medicine
PROC: 10E0XZZ Delivery of Products of Conception, External Approach (ICD-10-PCS; principal; 2019-10-10)
PROC: 10907ZC Drainage of Amniotic Fluid, Therapeutic from Products of Conception, Via Natural or Artificial Opening (ICD-10-PCS; 2019-10-10)
DX: O24.420 Gestational diabetes mellitus in childbirth, diet controlled (principal); O99.324 Drug use complicating childbirth; Z37.0 Single live birth; O26.62 Liver and biliary tract disorders in childbirth; O99.344 Other mental disorders complicating childbirth; F32.9 Major depressive disorder, single episode, unspecified; F14.90 Cocaine use, unspecified, uncomplicated; Z3A.39 39 weeks gestation of pregnancy; O76 Abnormality in fetal heart rate and rhythm complicating labor and delivery; O99.02 Anemia complicating childbirth; O13.4 Gestational [pregnancy-induced] hypertension without significant proteinuria, complicating childbirth; D18.03 Hemangioma of intra-abdominal structures
CPT/HCPCS: 36415; 36416; 51702; 76815; 80306; 82805; 82947; 85027; 86780; 86850; 86900; 86901; 87340; J2590; S0020